=== PATIENT | female | born 1960 | race Caucasian/White ===

== ENCOUNTER → 2023-09-07 07:16 | Outpatient (REF) | payer OTHER, SELFPAY | LOC: DHCBC HW 07:16 | PROVIDERS: ATTENDING PHYSICIAN Internal Medicine Cardiovascular Disease; FAMILY PHYSICIAN Nurse Practitioner | DX: I10 Essential (primary) hypertension (principal); E78.2 Mixed hyperlipidemia; R07.89 Other chest pain | CPT/HCPCS: 93306 ==

== ENCOUNTER → 2023-09-21 09:07 | Outpatient (REF) | payer OTHER, SELFPAY | LOC: RCS 09:07 | PROVIDERS: ATTENDING PHYSICIAN Internal Medicine Cardiovascular Disease; FAMILY PHYSICIAN Nurse Practitioner | DX: I10 Essential (primary) hypertension (principal); E78.2 Mixed hyperlipidemia; R07.89 Other chest pain | CPT/HCPCS: 93017; 93350 ==

== ENCOUNTER 2023-09-23 06:21 | Day surgery (SDC) | payer OTHER, SELFPAY ==
[2023-09-22 10:53] LABS: Hematocrit 40.6 % (37.0-47.0); Hemoglobin 13.6 g/dL (12.0-16.0); Mean Corp Hgb Conc. 33.5 g/dL (33.0-37.0); Mean Corpuscular Hgb 31.5 pg (27.0-31.0); Mean Platelet Volume 11.5 fL (7.4-10.4); Platelet Count 274 10^3/uL (130-400); Red Blood Cell Count 4.32 10^6/uL (4.20-5.40); Red Cell Dist. Width 13.4 % (11.5-14.5); White Blood Cell Count 5.9 10^3/uL (4.8-10.8)
[2023-09-22 11:11] VITALS: BMI 32.6
[2023-09-22 11:13] LABS: PT 13.2 Sec (11.4-14.6)
[2023-09-22 11:14] LABS: APTT 30.2 Sec (23.4-35.0)
[2023-09-22 11:21] LABS: Blood Urea Nitrogen 24 mg/dl (7-17); Calcium 9.8 mg/dl (8.4-10.2); Carbon Dioxide 26 mmol/L (22-30); Chloride 103 mmol/L (98-107); Estimated Creatinine Clearance 91 ml/min; Glucose 113 mg/dl (70-99); Potassium 4.9 mmol/L (3.5-5.1); Sodium 140 mmol/L (135-145); eGFR > 60.00
[2023-09-23] VITALS (16 sets, daily range): BP systolic 118–156; BP diastolic 60–103; BMI 32.6
[2023-09-23] MEDS: NORMOSOL-R 1000 IV (08:52)
[2023-09-23] MEDS: CYSVIEW KIT 100 MG INTRAVES (08:53)
--- NOTE | 2023-09-23 09:41 | PTCARENOTE ---
Cystview instilled today with no complications via monge cath using a sterile technique. Will monitor patient.
[2023-09-23] MEDS: SUBLIMAZE 50 MCG IV (11:07)
[2023-09-23] MEDS: SUBLIMAZE 25 MCG IV ×2 (11:14→11:25)
[2023-09-23] MEDS: SYRINGE NON-PUMP 50 ML IRRIG ×2 (11:37→11:40)
[2023-09-23] MEDS: SYRINGE NON-PUMP 50 MG IRRIG ×2 (11:37→11:40)
[2023-09-23] MEDS: VALIUM INJECTION 5 MG IV (11:40)
[2023-09-23] MEDS: Pyridium 200 MG PO (11:59)
== END 2023-09-23 14:45 | disposition home or self-care (01) ==
LOC: SDS 06:21
PROVIDERS: ATTENDING PHYSICIAN Specialist; FAMILY PHYSICIAN Nurse Practitioner
DX: C67.9 Malignant neoplasm of bladder, unspecified (principal)
CPT/HCPCS: 52240; 52332; C9738; 88307; 36415; 74420; 76000; 80048; 85027; 85610; 85730; 88341; 88342; A4300; A9589; C2617; J9201

== ENCOUNTER → 2023-10-20 15:48 | Outpatient (REF) | payer OTHER, SELFPAY | LOC: WDC 15:48 | PROVIDERS: FAMILY PHYSICIAN Nurse Practitioner | DX: Z12.31 Encounter for screening mammogram for malignant neoplasm of breast (principal) | CPT/HCPCS: 77063; 77067 ==

== ENCOUNTER 2024-01-13 06:16 | Day surgery (SDC) | payer OTHER, SELFPAY ==
[2024-01-11 07:16] VITALS: BMI 33.6
[2024-01-11 09:00] LABS: Hematocrit 39.5 % (37.0-47.0); Mean Corp Hgb Conc. 32.9 g/dL (33.0-37.0); Mean Corpuscular Hgb 31.4 pg (27.0-31.0); Mean Corpuscular Volume 95.4 fL (81.0-99.0); Mean Platelet Volume 11.3 fL (7.4-10.4); Platelet Count 284 10^3/uL (130-400); Red Blood Cell Count 4.14 10^6/uL (4.20-5.40); Red Cell Dist. Width 13.7 % (11.5-14.5); White Blood Cell Count 5.9 10^3/uL (4.8-10.8)
[2024-01-11 09:12] LABS: INR 0.96; PT 12.6 Sec (11.4-14.6)
[2024-01-11 09:13] LABS: APTT 28.5 Sec (23.4-35.0)
[2024-01-11 09:23] LABS: Blood Urea Nitrogen 19 mg/dl (7-17); Calcium 9.4 mg/dl (8.4-10.2); Carbon Dioxide 24 mmol/L (22-30); Chloride 111 mmol/L (98-107); Estimated Creatinine Clearance 109 ml/min; Glucose 99 mg/dl (70-99); Sodium 144 mmol/L (135-145); eGFR > 60.00
[2024-01-13] VITALS (8 sets, daily range): BP systolic 108–167; BP diastolic 61–93; BMI 33.6
[2024-01-13] MEDS: CYSVIEW KIT 100 MG INTRAVES (08:59)
[2024-01-13] MEDS: TRANSDERM-SCOP 1 PATCH TRANSDERM (09:07)
[2024-01-13] MEDS: NORMOSOL-R 1000 IV (09:25)
[2024-01-13] MEDS: Pyridium 200 MG PO (12:50)
== END 2024-01-13 13:48 | disposition home or self-care (01) ==
LOC: SDS 06:16
PROVIDERS: ATTENDING PHYSICIAN Specialist; FAMILY PHYSICIAN Nurse Practitioner
DX: Z48.816 Encounter for surgical aftercare following surgery on the genitourinary system (principal); Z85.51 Personal history of malignant neoplasm of bladder; Z88.1 Allergy status to other antibiotic agents; Z88.5 Allergy status to narcotic agent
CPT/HCPCS: 52204; 88305; 88307; 36415; 80048; 85027; 85610; 85730; A9589

== ENCOUNTER → 2024-06-05 14:07 | Outpatient (REF) | payer OTHER, SELFPAY | LOC: RAD 14:07 | PROVIDERS: ATTENDING PHYSICIAN Nurse Practitioner | DX: R10.2 Pelvic and perineal pain (principal) | CPT/HCPCS: 76830; 76856 ==

== ENCOUNTER → 2024-06-18 12:08 | Outpatient (REF) | payer OTHER, SELFPAY | LOC: RAD 12:08 | PROVIDERS: ATTENDING PHYSICIAN Specialist; FAMILY PHYSICIAN Nurse Practitioner | DX: C67.9 Malignant neoplasm of bladder, unspecified (principal) | CPT/HCPCS: 74178; Q9967 ==